=== PATIENT | female | born 1995 | race Caucasian/White ===

== ENCOUNTER 2021-01-10 12:37 | Emergency (ER) | payer OTHER, SELFPAY ==
--- NOTE | ~2021-01-10 | XR_ITS ---
EXAMINATION: XR TOES, RIGHT CLINICAL INFORMATION: Fifth toe abscess COMPARISON: None TECHNIQUE: 3 views of the right toes were obtained. FINDINGS: Bone alignment is normal. No fracture, dislocation or x-ray evidence of osteomyelitis is seen. Soft tissues are unremarkable. XR/XR toe RT min 2V IMPRESSION: Unremarkable examination.
[2021-01-10 13:00] VITALS: BP 115/69; PULSE 123; RESP 18; O2SAT 98; BMI 23.4
--- NOTE | 2021-01-10 13:16 | ED.EXTPRO ---
HPI - Extremity Problem General Chief complaint: Extremity Problem <LUDWIG So Last Filed: 01/10/21 16:50> Stated complaint: toe infection <LUDWIG So Last Filed: 01/10/21 16:50> Time Seen by Provider: 01/10/21 13:16 <LUDWIG So Last Filed: 01/10/21 16:50> Source: patient <LUDWIG So Last Filed: 01/10/21 16:50> Mode of arrival: ambulatory <LUDWIG So Last Filed: 01/10/21 16:50> Limitations: no limitations <LUDWIG So Last Filed: 01/10/21 16:50> History of Present Illness HPI Narrative: 25 y/o female presents to the ER with worsening right pinky toe pain and infection for the last 2 days. She reports being seen by her PCP initially and being given a topical cream. She went to Urgent Care last night for worsening pain and was prescribed Keflex. She took one dose and vomited it back up. She noticed yesterday 2 faint red lines on the top of her foot. She denies fever or chills. She denies being diabetic. She reports having recurrent issues with this toe for the last 5 years in the form of athlete's foot but never had an abscess or bacterial infection. <LUDWIG So - Last Filed: 01/10/21 16:50> MD Complaint: extremity pain and joint paint <LUDWIG So Last Filed: 01/10/21 16:50> Onset (ago): day(s) (2) <LUDWIG So Last Filed: 01/10/21 16:50> Pain Consistency: constant <LUDWIG So Last Filed: 01/10/21 16:50> Location: right and lower extremity <LUDWIG So Last Filed: 01/10/21 16:50> Severity scale (1-10): 7 <LUDWIG So Last Filed: 01/10/21 16:50> Quality: aching <LUDWIG So Last Filed: 01/10/21 16:50> Radiation: proximal <LUDWIG So Last Filed: 01/10/21 16:50> Relieving factors: immobilization <LUDWIG So Last Filed: 01/10/21 16:50> Exacerbating factors: walking and palpation <LUDWIG So Last Filed: 01/10/21 16:50> Associated symptoms: denies other symptoms <LUDWIG So Last Filed: 01/10/21 16:50> Related Data Home medications: Previous Rx's Medication Instructions Recorded amoxicillin 875 mg-potassium 1 tab PO BID #20 tab 01/10/21 clavulanate 125 mg tablet (Augmentin) amoxicillin 875 mg-potassium 1 tab PO Q12H #20 tab 01/10/21 clavulanate 125 mg tablet (Augmentin) ondansetron 4 mg disintegrating 4 mg PO Q8H PRN #7 tab 01/10/21 tablet ondansetron 4 mg disintegrating 4 mg PO Q8H PRN #7 tab 01/10/21 tablet <LUDWIG So Last Filed: 01/10/21 16:50> Allergies/Adverse reactions: Allergies Allergy/AdvReac Type Severity Reaction Status Date / Time Unable to Assess Allergy Unverified 01/10/21 13:44 <LUDWIG So Last Filed: 01/10/21 16:50> Review of Systems Review of Systems: Constitutional: No Fever, No Chills Cardiovascular: No Chest Pain, No SOB Respiratory: No Cough, No Sputum Gastrointestinal: + Nausea, + Vomiting, No Diarrhea, No abdominal Pain Genitourinary: No Dysuria, No Urinary Frequency, No Hematuria Musculoskeletal: + joint pain, No Myalgias Skin: + Skin Lesions, No rash Neuro: No Weakness, No Numbness, No Dizziness, No Headache Psych: No Anxiety/Panic, No Depression Heme/Lymph: No Bruising, No Lymphadenopathy <LUDWIG So Last Filed: 01/10/21 16:50> [facility] Past Medical History Attestation statement: The following information was validated with the patient. <LUDWIG So Last Filed: 01/10/21 16:50> Social History Social History: Social History Advance Directives: No Advance Directives Information Provided: No <LUDWIG So - Last Filed: 01/10/21 16:50> Physical Exam Vital Signs: Vital Signs: Last Vital Signs Temp 98.7 F 01/10/21 16:40 Pulse 102 H 01/10/21 15:56 Resp 16 01/10/21 15:56 BP 102/61 01/10/21 15:56 Pulse Ox 98 01/10/21 15:56 Body Mass Index 23.4 <LUDWIG So - Last Filed: 01/10/21 16:50> Vital Signs: Last Vital Signs Temp 98.7 F 01/10/21 16:40 Pulse 102 H 01/10/21 15:56 Resp 16 01/10/21 15:56 BP 102/61 01/10/21 15:56 Pulse Ox 98 01/10/21 15:56 Body Mass Index 23.4 <João Long MD - Last Filed: 01/10/21 15:27> Vital Signs: Last Vital Signs Temp 98.7 F 01/10/21 16:40 Pulse 102 H 01/10/21 15:56 Resp 16 01/10/21 15:56 BP 102/61 01/10/21 15:56 Pulse Ox 98 01/10/21 15:56 Body Mass Index 23.4 <Ursula Mae PA-C - Last Filed: 01/10/21 20:27> Appearance: Alert. Oriented X3. No acute distress. HEENT: normal inspection CVS: Normal heart rate and rhythm. Pulses normal. Respiratory: No respiratory distress. Skin: Skin warm and dry. Normal skin color. Normal skin turgor. No rashes. Extremities: right 5th toe with scabbed lesion with crusting at the distal top, on plantar aspect there is a 1.5 cm yellow, fluctuant area at the base of the 5th toe. 2 erythematous streaks on the top of the foot. NV intact distally. full ROM of the toes and ankle. No calf tenderness. Neuro: Oriented X 3. No motor deficit. No sensory deficit. <LUDWIG So - Last Filed: 01/10/21 16:50> Course Course Course Narrative: 25 y/o female presenting with painful right 5th toe with area of fluctuance on the plantar aspect consistent with abscess. Streaking anteriorly consistent with lymphangitic spread. HR 120s with low grade fever. Will get XR to r/o bony erosion or joint damage. Will also get labs including lactic acid and cultures. She does not appear to be septic at this time. <LUDWIG So - Last Filed: 01/10/21 16:50> Reevaluation(s) Reevaluation #1: I have discussed the case and management with the HOWARD <João Long MD - Last Filed: 01/10/21 15:27> Time: 14:08 <João Long MD - Last Filed: 01/10/21 15:27> Reevaluation #2: Normal WBC and lactic acid. She remains hemodynamically stable. XR is normal. Given dose of IV antibiotics to cover staph and strep. No hx diabetes or MRSA. She otherwise appears well. <LUDWIG So - Last Filed: 01/10/21 16:50> Reevaluation #3: On re-evaluation patient has some spreading of the red streak up her left calf. Dr. Long evaluated the patient at the bedside. We discussed possibility of admission vs trial of PO abx and close monitoring at home. Will plan to continue oral antibiotics and discharge home. Will change to Augmentin given intolerance to Keflex at home. Will give dose now and see how she does. Red area was marked and she was told if there is any extension of the redness she needs to come back to the hospital [facility] for IV antibiotics. She expressed understanding and agrees with plan. <LUDWIG So - Last Filed: 01/10/21 16:50> Time: 20:27 <Ursula Mae PA-C - Last Filed: 01/10/21 20:27> Additional Reevaluation(s): Patient called as prescriptions were not sent to the pharmacy, I will send them now. <Ursula Mae PA-C - Last Filed: 01/10/21 20:27> MDM - Extremity (Nontraumatic) Lab Data Result diagrams: : 01/10/21 14:37 01/10/21 14:37 <LUDWIG So Last Filed: 01/10/21 16:50> Labs: Lab Results 01/10/21 01/10/21 01/10/21 Range/Units 14:37 14:37 14:37 WBC 10.6 (4.8-10.8) X10*3/uL RBC 5.50 (4.20-5.50) X10*6/uL Hgb 15.4 (12.0-16.0) g/dl Hct 47.3 H (37-47) % MCV 86.0 (80-98) fL MCH 28.0 (27.0-33.0) pg MCHC 32.6 (31.0-35.0) g/dl RDW 12.7 (11.0-16.0) % Plt Count 146 L (160-400) X10*3/uL MPV 10.8 (9.4-12.3) fL Immature Gran % (Auto) 0.5 H (0.0-0.4) % Neut % (Auto) 92.7 H (45-73) % Lymph % (Auto) 2.9 L (20-40) % [place] % (Auto) 2.3 (2-11) % Eos % (Auto) 1.3 (0-4) % Baso % (Auto) 0.3 (0-2) % Lymph # (Auto) 0.3 L (1.2-4.9) X10*3/uL [place] # (Auto) 0.2 (0.1-1.2) X10*3/uL Eos # (Auto) 0.1 (0.0-0.4) X10*3/uL Baso # (Auto) 0.0 (0.0-0.2) X10*3/uL Abs Immat Gran (auto) 0.05 H (0.00-0.03) X10*3/uL Absolute Neuts (auto) 9.9 H (2.0-8.3) X10*3/uL Absolute Nucleated RBC 0.000 (0.0-0.012) X10*3/uL Nucleated RBC % (auto) 0.0 (0.0-0.2) /100WBC Smear Tech's Comments VERIFIED Sodium 135 (135-145) mmol/L Potassium 3.7 (3.3-5.1) mmol/L Chloride 100 (96-108) mmol/L Carbon Dioxide 24 (22-29) mmol/L Anion Gap 15 (12-20) BUN 10 (9-16) mg/dL Creatinine 0.84 (0.5-1.4) mg/dL Estim Creat Clear Calc 85.4 Estimated GFR > 60 Random Glucose 102 (60-115) mg/dL Lactic Acid 1.9 (0.5-2.0) mmol/L Calcium 8.9 (8.4-10.2) mg/dL <LUDWIG So - Last Filed: 01/10/21 16:50> Lab Results 01/10/21 01/10/21 01/10/21 Range/Units 14:37 14:37 14:37 WBC 10.6 (4.8-10.8) X10*3/uL RBC 5.50 (4.20-5.50) X10*6/uL Hgb 15.4 (12.0-16.0) g/dl Hct 47.3 H (37-47) % MCV 86.0 (80-98) fL MCH 28.0 (27.0-33.0) pg MCHC 32.6 (31.0-35.0) g/dl RDW 12.7 (11.0-16.0) % Plt Count 146 L (160-400) X10*3/uL MPV 10.8 (9.4-12.3) fL Immature Gran % (Auto) 0.5 H (0.0-0.4) % Neut % (Auto) 92.7 H (45-73) % Lymph % (Auto) 2.9 L (20-40) % [place] % (Auto) 2.3 (2-11) % Eos % (Auto) 1.3 (0-4) % Baso % (Auto) 0.3 (0-2) % Lymph # (Auto) 0.3 L (1.2-4.9) X10*3/uL [place] # (Auto) 0.2 (0.1-1.2) X10*3/uL Eos # (Auto) 0.1 (0.0-0.4) X10*3/uL Baso # (Auto) 0.0 (0.0-0.2) X10*3/uL Abs Immat Gran (auto) 0.05 H (0.00-0.03) X10*3/uL Absolute Neuts (auto) 9.9 H (2.0-8.3) X10*3/uL Absolute Nucleated RBC 0.000 (0.0-0.012) X10*3/uL Nucleated RBC % (auto) 0.0 (0.0-0.2) /100WBC Smear Tech's Comments VERIFIED Sodium 135 (135-145) mmol/L Potassium 3.7 (3.3-5.1) mmol/L Chloride 100 (96-108) mmol/L Carbon Dioxide 24 (22-29) mmol/L Anion Gap 15 (12-20) BUN 10 (9-16) mg/dL Creatinine 0.84 (0.5-1.4) mg/dL Estim Creat Clear Calc 85.4 Estimated GFR > 60 Random Glucose 102 (60-115) mg/dL Lactic Acid 1.9 (0.5-2.0) mmol/L Calcium 8.9 (8.4-10.2) mg/dL <João Long MD - Last Filed: 01/10/21 15:27> Lab Results 01/10/21 01/10/21 01/10/21 Range/Units 14:37 14:37 14:37 WBC 10.6 (4.8-10.8) X10*3/uL RBC 5.50 (4.20-5.50) X10*6/uL Hgb 15.4 (12.0-16.0) g/dl Hct 47.3 H (37-47) % MCV 86.0 (80-98) fL MCH 28.0 (27.0-33.0) pg MCHC 32.6 (31.0-35.0) g/dl RDW 12.7 (11.0-16.0) % Plt Count 146 L (160-400) X10*3/uL MPV 10.8 (9.4-12.3) fL Immature Gran % (Auto) 0.5 H (0.0-0.4) % Neut % (Auto) 92.7 H (45-73) % Lymph % (Auto) 2.9 L (20-40) % [place] % (Auto) 2.3 (2-11) % Eos % (Auto) 1.3 (0-4) % Baso % (Auto) 0.3 (0-2) % Lymph # (Auto) 0.3 L (1.2-4.9) X10*3/uL [place] # (Auto) 0.2 (0.1-1.2) X10*3/uL Eos # (Auto) 0.1 (0.0-0.4) X10*3/uL Baso # (Auto) 0.0 (0.0-0.2) X10*3/uL Abs Immat Gran (auto) 0.05 H (0.00-0.03) X10*3/uL Absolute Neuts (auto) 9.9 H (2.0-8.3) X10*3/uL Absolute Nucleated RBC 0.000 (0.0-0.012) X10*3/uL Nucleated RBC % (auto) 0.0 (0.0-0.2) /100WBC Smear Tech's Comments VERIFIED Sodium 135 (135-145) mmol/L Potassium 3.7 (3.3-5.1) mmol/L Chloride 100 (96-108) mmol/L Carbon Dioxide 24 (22-29) mmol/L Anion Gap 15 (12-20) BUN 10 (9-16) mg/dL Creatinine 0.84 (0.5-1.4) mg/dL Estim Creat Clear Calc 85.4 Estimated GFR > 60 Random Glucose 102 (60-115) mg/dL Lactic Acid 1.9 (0.5-2.0) mmol/L Calcium 8.9 (8.4-10.2) mg/dL <Ursula Mae PA-C - Last Filed: 01/10/21 20:27> Discharge Plan Discharge Clinical Impression: Abscess, Lymphangitis of lower extremity <LUDWIG So - Last Filed: 01/10/21 16:50> Patient Disposition: Home, Self-Care <LUDWIG So - Last Filed: 01/10/21 16:50> Instructions: Lymphangitis (ED), Abscess Incision and Drainage (DC) <LUDWIG So - Last Filed: 01/10/21 16:50> Additional Instructions: Your lab workup today was unremarkable. Your x-ray was normal. Take the prescribed antibiotic as directed. If you notice ANY worsening of the red streak on your leg, shaking chills or any other concerning symptoms come back to the ER [facility]. <LUDWIG So - Last Filed: 01/10/21 16:50> Prescriptions: New amoxicillin-pot clavulanate [Augmentin] 875-125 mg tablet 1 tab PO BID Qty: 20 RF: 0 ondansetron 4 mg tablet,disintegrating 4 mg PO Q8H PRN (Reason: nausea and vomiting) Qty: 7 RF: 0 amoxicillin-pot clavulanate [Augmentin] 875-125 mg tablet 1 tab PO Q12H Qty: 20 RF: 0 ondansetron 4 mg tablet,disintegrating 4 mg PO Q8H PRN (Reason: nausea and vomiting) Qty: 7 RF: 0 <LUDWIG So - Last Filed: 01/10/21 16:50> Stand Alone Forms: Work/School Release <LUDWIG So - Last Filed: 01/10/21 16:50> Interventions: ED Discharge Assessment Last Done: 01/10/21 18:07 <LUDWIG So - Last Filed: 01/10/21 16:50> Discharge Date/Time: 01/10/21 18:09 <LUDWIG So - Last Filed: 01/10/21 16:50>
[2021-01-10] MEDS: 0.9 % Sodium Chloride 1,000 ML 999 ML IVCONT (14:40)
[2021-01-10 14:46] LABS: Basophils Percent Auto 0.3 % (0-2); Eosinophils Absolute Auto 0.1 X10*3/uL (0.0-0.4); Eosinophils Percent Auto 1.3 % (0-4); Hematocrit 47.3 % (37-47); Hemoglobin 15.4 g/dl (12.0-16.0); Imm Gran Abs Auto 0.05 X10*3/uL (0.00-0.03); Imm Gran Pct Auto 0.5 % (0.0-0.4); Lymphocytes Absolute Auto 0.3 X10*3/uL (1.2-4.9); Lymphocytes Percent Auto 2.9 % (20-40); MANUAL DIFF FLAG SCAN; Mean Corpuscular HGB Conc 32.6 g/dl (31.0-35.0); Mean Platelet Volume 10.8 fL (9.4-12.3); Monocytes Absolute Auto 0.2 X10*3/uL (0.1-1.2); Monocytes Percent Auto 2.3 % (2-11); Neutrophils Absolute Auto 9.9 X10*3/uL (2.0-8.3); Neutrophils Percent Auto 92.7 % (45-73); Platelet Count 146 X10*3/uL (160-400); Red Cell Distribution Width 12.7 % (11.0-16.0); SCAN SMEAR FLAG 1; White Blood Count 10.6 X10*3/uL (4.8-10.8)
[2021-01-10 14:55] VITALS: TEMP 37.9
[2021-01-10 15:08] LABS: SLIDE REVIEW VERIFIED
[2021-01-10 15:11] LABS: Lactic Acid 1.9 mmol/L (0.5-2.0)
[2021-01-10 15:13] LABS: Anion Gap 15 (12-20); Blood Urea Nitrogen 10 mg/dL (9-16); Calcium 8.9 mg/dL (8.4-10.2); Carbon Dioxide 24 mmol/L (22-29); Chloride 100 mmol/L (96-108); Creatinine Clr Calc Pharmacy 85.4; Estimated Glomerular Filt Rate > 60; Glucose Random 102 mg/dL (60-115); Potassium 3.7 mmol/L (3.3-5.1); Sodium 135 mmol/L (135-145)
[2021-01-10] MEDS: Lidocaine HCl 2 % MPF 5 ML VIAL INFILTRATI (15:15)
[2021-01-10] MEDS: cefTRIAXone sodium 1 GM in 0.9 % Sodium Chloride 50 ML IV (15:15)
[2021-01-10] MEDS: Acetaminophen 325 MG TABLET 975 MG PO (15:16)
[2021-01-10 15:56] VITALS: BP 102/61; PULSE 102; RESP 16; TEMP 37.5; O2SAT 98
[2021-01-10 16:40] VITALS: TEMP 37.1
[2021-01-10] MEDS: Amoxicillin/Potassium Clav 875 MG TABLET PO (16:58)
== END 2021-01-10 18:09 | disposition home or self-care (01) ==
PROVIDERS: Physician Assistant; Emergency Provider Emergency Medicine
DX: L02.611 Cutaneous abscess of right foot (principal)
CPT/HCPCS: 36415; 73660; 80048; 83605; 85025; 87040; 96361; 96365; 96374; 99284; J0696

== ENCOUNTER 2021-05-05 07:20 | Emergency (ER) | payer OTHER, SELFPAY ==
[2021-05-05 07:25] VITALS: BP 123/73; PULSE 83; RESP 16; TEMP 36.8; O2SAT 98; BMI 25.2
--- NOTE | 2021-05-05 08:36 | ED_ITS ---
HPI - General Adult General Chief complaint: Extremity Problem Stated complaint: R PINKY TOE INFECTION Time Seen by Provider: 05/05/21 07:32 Source: patient Mode of arrival: ambulatory History of Present Illness HPI narrative: 25-year-old female with past medical history of cellulitis, tinea pedis, presenting to the ED complaining of persistent bilateral foot fungal infection x weeks. Reports has been seen by administrative aide and commercial escrow assistant, currently using topical nystatin and cortisone without relief. Reports area mildly improved however now pruritic, with slight drainage, and spreading to other foot and L hand. Denies fever, chills Onset (ago): week(s) Related Data Previous Rx's Medication Instructions Recorded amoxicillin 875 mg-potassium 1 tab PO BID #20 tab 01/10/21 clavulanate 125 mg tablet (Augmentin) amoxicillin 875 mg-potassium 1 tab PO Q12H #20 tab 01/10/21 clavulanate 125 mg tablet (Augmentin) ondansetron 4 mg disintegrating 4 mg PO Q8H PRN #7 tab 01/10/21 tablet ondansetron 4 mg disintegrating 4 mg PO Q8H PRN #7 tab 01/10/21 tablet fluconazole 150 mg tablet 150 mg PO QWEEK #4 tab 05/05/21 (Diflucan) Allergies Allergy/AdvReac Type Severity Reaction Status Date / Time Unable to Assess Allergy Unverified 01/10/21 13:44 Review of Systems Review of Systems: Constitutional: No Fever, No Chills ENT/Mouth: No Ear Pain, No Nasal Congestion, No sore throat, No Rhinorrhea, No Swallowing Difficulty Cardiovascular: No Chest Pain, No SOB Respiratory: No Cough Gastrointestinal: No Nausea, No Vomiting, No Abdominal pain Genitourinary: No Dysuria, No Flank Pain Musculoskeletal: No joint pain, No Myalgias, No Joint Swelling Skin: + Skin Lesions, No rash Neuro: No Weakness, No Numbness, No Paresthesias Yes all other systems are reviewed and are negative [facility] Past Medical History Attestation statement: The following information was validated with the patient. Medical History (Updated 05/05/21 @ 08:35 by LUDWIG Chance) No known health problems Social History Social History Alcohol intake: never Patient Tobacco Use Status: Never used Tobacco Use of substances other than those prescribed or required for medical reasons: No Advance Directives: No Advance Directives Information Provided: No Patient : No Physical Exam Vital Signs: Vital Signs: Last Vital Signs Temp 98.2 F 05/05/21 07:25 Pulse 83 05/05/21 07:25 Resp 16 05/05/21 07:25 BP 123/73 05/05/21 07:25 Pulse Ox 98 05/05/21 07:25 Body Mass Index 25.2 Const: General: cooperative, healthy appearing and no acute distress Orientation/consciousness: patient oriented x3 Limitations: no limitations HENMT: Head: Yes normal to inspection Ears: hearing grossly normal bilaterally General nose exam: Normal external nose present Face and sinus: Yes normal facial exam Eyes: General: appearance normal, both eyes and all related structures EOM: EOMs intact bilaterally Neck: Neck: Yes normal visual inspection and Yes no meningeal signs Resp: Effort & Inspection: normal respiratory effort and no respiratory distress Cardio: Rate: regular rate Peripheral pulses: dorsalis pedis present Skin: Other: + scaling tinea noted to right distal foot/between toes and plantar aspect with slight clear drainage. No superimposed erythema/cellulitis. No warmth. No streaking + circular scaling area noted to right palmar aspect Wounds: no wounds Neuro: General: patient oriented x3 and no meningeal signs Gait exam (Neuro): Normal gait present Extrem: General: Yes normal to inspection Medical Decision Making MDM Narrative Medical decision making narrative: 25-year-old female with past medical history of cellulitis, tinea pedis, presenting to the ED complaining of persistent bilateral foot fungal infection times weeks. On exam vital signs stable, NAD/nontoxic, exam consistent with persistent tinea. No active cellulitis at this time. No evidence of abscess or streaking. Will try course of topical Diflucan outpatient follow-up with Dermatology/podiatry Discharge Plan Discharge Clinical Impression: Tinea corporis Patient Disposition: Home, Self-Care Instructions: Tinea Corporis (ED) Additional Instructions: Diflucan is an oral antifungal, take once weekly for 4 weeks Continue your other topical antifungals and steroid, apply a thin layer, keep feet/hands dry Please follow-up with Dermatology and Podiatry If area begins look infected, is red, there is drainage, fever chills pain return to the emergency department Prescriptions: New fluconazole [Diflucan] 150 mg tablet 150 mg PO QWEEK Qty: 4 RF: 0 No Action amoxicillin-pot clavulanate [Augmentin] 875-125 mg tablet 1 tab PO BID Qty: 20 RF: 0 ondansetron 4 mg tablet,disintegrating 4 mg PO Q8H PRN (Reason: nausea and vomiting) Qty: 7 RF: 0 amoxicillin-pot clavulanate [Augmentin] 875-125 mg tablet 1 tab PO Q12H Qty: 20 RF: 0 ondansetron 4 mg tablet,disintegrating 4 mg PO Q8H PRN (Reason: nausea and vomiting) Qty: 7 RF: 0 Referrals: Shay Gomez MD [Physician] - 2 days Augustin Brock MD [Physician] - 2 days Maricel Viveros NP [Nurse Practitioner] - 2 days Radha Ponce PA-C [Physician Digital Strategy Manager] - 2 days Shruti Thayer PA-C [Physician Digital Strategy Manager] - 2 days
== END 2021-05-05 08:57 | disposition home or self-care (01) ==
PROVIDERS: Emergency Provider Emergency Medicine
DX: B35.4 Tinea corporis (principal)
CPT/HCPCS: 99283

== ENCOUNTER 2021-05-12 17:21 | Emergency (ER) | payer OTHER, SELFPAY ==
[2021-05-12 18:22] VITALS: BP 130/83; PULSE 87; RESP 18; TEMP 36.8; O2SAT 98; BMI 25.2
--- NOTE | 2021-05-12 20:29 | ED.SKABFB ---
HPI - Skin/Abscess/Foreign Bdy General Chief complaint: Skin/Abscess/Foreign Body Stated complaint: ?Toe infection Time Seen by Provider: 05/12/21 20:20 Source: patient Mode of arrival: ambulatory History of Present Illness HPI narrative: Patient has chronic dermatitis rash in the right foot for more than 60 also on the left home with history of eczema has seen senior environmental scientist in the past was prescribed nystatin cream and triamcinolone on which did not help her much comes in for same today no history of diabetes Related Data Previous Rx's Medication Instructions Recorded amoxicillin 875 mg-potassium 1 tab PO BID #20 tab 01/10/21 clavulanate 125 mg tablet (Augmentin) amoxicillin 875 mg-potassium 1 tab PO Q12H #20 tab 01/10/21 clavulanate 125 mg tablet (Augmentin) ondansetron 4 mg disintegrating 4 mg PO Q8H PRN #7 tab 01/10/21 tablet ondansetron 4 mg disintegrating 4 mg PO Q8H PRN #7 tab 01/10/21 tablet fluconazole 150 mg tablet 150 mg PO QWEEK #4 tab 05/05/21 (Diflucan) clobetasol 0.05 % topical ointment 1 appl TOPICAL BID #45 g 05/12/21 (Temovate) doxycycline hyclate 100 mg tablet 100 mg PO BID #20 tab 05/12/21 miconazole nitrate 2 % topical 1 spray TOPICAL BID #150 g 05/12/21 spray (Lotrimin AF) prednisone 20 mg tablet 40 mg PO DAILY #10 tab 05/12/21 Allergies Allergy/AdvReac Type Severity Reaction Status Date / Time No Known Allergies Allergy Verified 05/12/21 18:22 Review of Systems Review of Systems: Yes all other systems are reviewed and are negative [facility] Past Medical History Medical History No known health problems Social History Social History Alcohol intake: never Patient Tobacco Use Status: Never used Tobacco Advance Directives: No Advance Directives Information Provided: No Patient : No Physical Exam Vital Signs: Vital Signs: Last Vital Signs Temp 98.2 F 05/12/21 18:22 Pulse 87 05/12/21 18:22 Resp 18 05/12/21 18:22 BP 130/83 05/12/21 18:22 Pulse Ox 98 05/12/21 18:22 BMI result Body Mass Index 25.2 Skin: Full body images: 1. Eczematous rash the left from 2. Eczematous rash on the sole of right foot with open areas Discharge Plan Discharge Clinical Impression: Chronic dermatitis of feet Patient Disposition: Home, Self-Care Instructions: Dermatitis (ED) Additional Instructions: Avoid wearing socks for long hours Take medication as prescribed and follow with senior environmental scientist Prescriptions: New doxycycline hyclate 100 mg tablet 100 mg PO BID Qty: 20 RF: 0 Lotrimin AF 2 % aerosol,spray 1 spray topical BID Qty: 150 RF: 0 prednisone 20 mg tablet 40 mg PO DAILY Qty: 10 RF: 0 clobetasol [Temovate] 0.05 % ointment 1 appl topical BID Qty: 45 RF: 0 No Action amoxicillin-pot clavulanate [Augmentin] 875-125 mg tablet 1 tab PO BID Qty: 20 RF: 0 ondansetron 4 mg tablet,disintegrating 4 mg PO Q8H PRN (Reason: nausea and vomiting) Qty: 7 RF: 0 amoxicillin-pot clavulanate [Augmentin] 875-125 mg tablet 1 tab PO Q12H Qty: 20 RF: 0 ondansetron 4 mg tablet,disintegrating 4 mg PO Q8H PRN (Reason: nausea and vomiting) Qty: 7 RF: 0 fluconazole [Diflucan] 150 mg tablet 150 mg PO QWEEK Qty: 4 RF: 0 Referrals: Kartik Leyva MD [Physician] - 1 week
== END 2021-05-12 20:47 | disposition home or self-care (01) ==
PROVIDERS: Emergency Provider Internal Medicine
DX: L30.8 Other specified dermatitis (principal)
CPT/HCPCS: 99283

== ENCOUNTER 2023-04-07 05:37 | Emergency (ER) | payer OTHER, SELFPAY ==
[2023-04-07 05:40] VITALS: BP 128/78; PULSE 80; RESP 18; TEMP 36.6; O2SAT 98; BMI 28.3
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
== END 2023-04-07 06:48 | disposition home or self-care (01) ==
PROVIDERS: Emergency Provider Emergency Medicine
DX: S00.11XA Contusion of right eyelid and periocular area, initial encounter (principal); H11.31 Conjunctival hemorrhage, right eye; X58.XXXA Exposure to other specified factors, initial encounter; Y93.9 Activity, unspecified; Y92.9 Unspecified place or not applicable; Y99.9 Unspecified external cause status
CPT/HCPCS: 99282; 99284